=== PATIENT | male | born 2000 ===

== ENCOUNTER 2019-07-26 23:49 | Emergency (ER) | payer BC ==
[~2019-07-26] VITALS: Ht 167.6 cm; Wt 81.8 kg
[2019-07-27 01:10] VITALS: BP 146/81; PULSE 74; TEMP 98.7
== END 2019-07-27 01:10 | disposition home or self-care (01) ==
LOC: COL.ER 23:49
DX: J95.830 Postprocedural hemorrhage of a respiratory system organ or structure following a respiratory system procedure (principal)